=== PATIENT | male | born 1990 | race Hispanic/Latino ===

== ENCOUNTER 2018-11-09 07:45 | Emergency (ER) | payer BC ==
[2018-11-09] MEDS ORDERED: Acetaminophen 500 MG TAB ONE (08:57)
== END 2018-11-09 08:59 | disposition home or self-care (01) ==
LOC: ERS 07:45
DX: J02.0 Streptococcal pharyngitis (principal); F17.210 Nicotine dependence, cigarettes, uncomplicated
CPT/HCPCS: 87081; 87430; 99283

== ENCOUNTER 2022-03-16 15:56 | Emergency (ER) | payer OTHER, SELFPAY ==
[2022-03-16] MEDS ORDERED: Ketorolac Tromethamine 30 MG/ML VIAL ONE (17:07)
== END 2022-03-16 17:15 | disposition home or self-care (01) ==
LOC: ERS 15:56
DX: M70.42 Prepatellar bursitis, left knee (principal); X50.3XXA Overexertion from repetitive movements, initial encounter; Y92.61 Building [any] under construction as the place of occurrence of the external cause
CPT/HCPCS: 96372; 99283; J1885